=== PATIENT | female | born 1945 | race Caucasian/White ===

== ENCOUNTER 2017-11-06 20:12 | Emergency (ER) | payer MEDICARE, OTHER ==
[~2017-11-06 20:12] MED LIST: ASPI81TA94 PO; AZIT-1 PO; BENA40TA51 PO; BENA40TA52 PO; CALC-852 PO; CEP500 PO; CEPH500C24 PO; CPAP; CYCL10TA29 PO; FOLI-68 PO; GLY25 PO; GOLYTE PO; GUAI120L3 PO; HCTZ25 PO; HYDR-2966 PO; HYDR-4309 PO; METF-1 PO; METF-420 PO; NITR-105 PO; OMEP-125 PO; OXYC20TA86 PO; OXYGENHOME INH; PAR20 PO; PARO-46 PO; PER PO; PNEU0.5D3 IM; PRA20 PO; PRAV20TA66 PO; PRED20TA6 PO; TAMO10TA26 PO
--- NOTE | 2017-11-06 20:26 | ER Report ---
History and Physical Time Seen By MD: 20:26 Hx. of Stated Complaint: pt reports abdominal pain lower both sides off and on since saturday, headache, cough and dizziness, sore throat HPI/ROS CHIEF COMPLAINT: Cough, headache, abdominal pain HISTORY OF PRESENT ILLNESS: 72-year-old female patient presents to emergency room with complaint of cough, headache and abdominal pain. Patient states that she started not feeling well on Saturday. She states that there is nothing she could really identify just wasn't feeling well. She states then on Saturday started having body aches, cough, abdominal pain. States the abdominal pain is intermittent. She states that this morning she felt she was going to throw up, however she did not. She states that she's not had checked for any fevers. She states that she has had some generalized body aches. She states that she was not vaccinated for the flu. She has taken Tylenol ibuprofen but no other medications for this. REVIEW OF SYSTEMS: Respiratory: As noted above Cardiovascular: No chest pain, no palpitations. Gastrointestinal: As noted above. Musculoskeletal: No back pain. Allergies: Coded Allergies: oxycodone (Verified Allergy, Intermediate, itching , 06/13/16) Sulfa (Sulfonamide Antibiotics) (Verified Allergy, Mild, UNKNOWN, 06/13/16) Home Meds Active Scripts Oseltamivir Phosphate (TAMIFLU) 75 Mg Cap, 75 MG PO BID, #8 CAP Prov:SEGUNDO FREDERICK 11/06/17 Metformin Hcl (METFORMIN HCL) 1,000 Mg Tablet, 1 TAB PO BID, #180 TAB 3 Refills Prov:ANNIKA YOUSIF MD 08/27/17 Paroxetine Hcl (PAROXETINE HCL) 20 Mg Tablet, 1 TAB PO DAILY for prn, #90 TAB 1 Refill Prov:ANNIKA YOUSIF MD 07/24/17 Benazepril Hcl (BENAZEPRIL HCL) 40 Mg Tablet, 1 TAB PO QDAY, #90 TAB 3 Refills Prov:ANNIKA YOUSIF MD 07/17/17 Hydrochlorothiazide (HYDROCHLOROTHIAZIDE) 25 Mg Tablet, 1 TAB PO QDAY, #90 TAB 3 Refills Prov:ANNIKA YOUSIF MD 07/02/17 Omeprazole (OMEPRAZOLE) 20 Mg Capsule., 1 CAP PO QDAY, #90 CAP 3 Refills Prov:ANNIKA YOUSIF MD 03/27/17 Pravastatin Sodium (PRAVASTATIN SODIUM) 20 Mg Tablet, 1 TAB PO QDAY, #90 TAB 3 Refills Prov:ANNIKA YOUSIF MD 10/24/16 Glyburide (GLYBURIDE) 2.5 Mg Tab, 1 TAB PO BID, #180 TAB 3 Refills Prov:ANNIKA YOUSIF MD 10/09/16 Reported Medications Oxygen (OXYGEN) Inha, 3 L INH HS, L with C-PAP 03/28/16 Folic Acid (FOLIC ACID) 1 Mg Tablet, 1 TAB PO QDAY 03/22/15 Aspirin (ASPIRIN) 81 Mg Tab.chew, 1 TAB PO QDAY, TAB.CHEW 03/22/15 Cpap (CPAP HOME) Inha, HS with Oxygen 03/22/15 Tamoxifen Citrate (TAMOXIFEN CITRATE) 10 Mg Tablet, 1 TAB PO QDAY 07/20/14 Past Medical/Surgical History Patient has a past medical history of hypertension, hyperlipidemia, sleep apnea , hiatal hernia, reflux, urinary incontinence, frequent UTIs, arthritis, diabetes, 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 Patient has surgical history of tubal ligation, right shoulder surgery, cataract surgery, LASIK, lumpectomy, left lower lip incision. Reviewed Nurses Notes: Yes Hx Smoking: No Smoking Status: Never Smoker Exposure to Second Hand Smoke?: Yes Hx Substance Use Disorder: No Hx Alcohol Use: No Constitutional Vital Sign - Last 24 Hours 11/06/17 11/06/17 11/06/17 11/06/17 20:12 20:22 20:22 20:27 Temp 99.2 Pulse ??? 105 94 Resp 20 B/P (MAP) 117/62 (80) 117/62 Pulse Ox 92 92 O2 Delivery Room Air 11/06/17 11/06/17 11/06/17 11/06/17 20:30 20:42 20:57 21:00 Pulse 87 87 B/P (MAP) 114/67 (83) 107/51 (69) Pulse Ox 89 86 11/06/17 21:12 Pulse 87 Pulse Ox 85 Physical Exam General Appearance: The patient is alert, has no immediate need for airway protection and no current signs of toxicity. ENT: Tympanic membranes are pearly-lópez, auditory canals are patent, mucous membranes are moist. Respiratory: Chest is non tender, lungs are clear to auscultation. Cardiac: regular rate and rhythm Gastrointestinal: Abdomen is soft and non tender, no masses, bowel sounds normal. Musculoskeletal: Neck: Neck is supple and non tender. Extremities have full range of motion and are non tender. Skin: No rashes or lesions. DIFFERENTIAL DIAGNOSIS: After history and physical exam differential diagnosis was considered for influenza, pneumonia, bronchitis, viral syndrome. Medical Decision Making Data Points Laboratory Hematology Test 11/06/17 20:30 Influenza Virus Type A (PCR) Negative (NEGATIVE) Influenza Virus Type B (PCR) Positive (NEGATIVE) Chemistry Test 11/06/17 20:30 Influenza Virus Type A (PCR) Negative (NEGATIVE) Influenza Virus Type B (PCR) Positive (NEGATIVE) EKG/Imaging Imaging EXAMINATION: Chest 2 Views HISTORY: Cough. COMPARISON: 12/14/2015. FINDINGS: Slight scarring or atelectasis at the left lung base. No focal consolidation or pleural effusion. No pneumothorax. Normal heart size and pulmonary vascularity, with normal cardiomediastinal contours. No acute osseous findings in the chest. Scattered degenerative changes throughout the spine. Prior surgery at the right shoulder with soft tissue anchors along the greater tuberosity. IMPRESSION: 1. No evidence of acute cardiopulmonary disease. 2. Slight scarring or atelectasis at the left base. Report Dictated By: Jose Lantigua MD at 11/06/2017 10:31 PM Report E-Signed By: Jose Lantigua MD at 11/06/2017 10:34 PM ED Course/Re-evaluation ED Course Patient is admitted to exam room, history of physical or obtained. Differential diagnoses were considered. On examination patient had significant cough. I was concerned with influenza with the presentation of symptoms. Influenza screen and chest x-ray were done. Patient was positive for influenza B. Chest x-ray showed no acute findings. I discussed the findings with the patient as well as her . We will go ahead and treat her with Tamiflu as I believe that symptoms truly started yesterday. She is return to emergency room if condition worsens. I would like her to follow-up with Dr. Dempsey about a week. Patient verbalized understanding and agreement with plan. Decision to Disposition Date: Nov 06, 2017 Decision to Disposition Time: 22:06 Depart Departure Latest Vital Signs Vital Signs Date Time Temp Pulse Resp B/P (MAP) Pulse Ox O2 Delivery O2 Flow Rate FiO2 11/06/17 21:12 87 85 11/06/17 21:00 107/51 (69) 11/06/17 20:22 99.2 20 Room Air Impression: Primary Impression: Influenza B Condition: Improved Disposition: HOME OR SELF-CARE Referrals: ANNIKA YOUSIF MD (PCP) New Scripts Oseltamivir Phosphate (TAMIFLU) 75 Mg Cap 75 MG PO BID, #8 CAP Prov: SEGUNDO FREDERICK 11/06/17 Patient Instructions: Influenza (ED) Additional Instructions: Increase fluid intake. Get plenty of rest. Take Tylenol or Ibuprofen as needed for fevers or pain. Follow up with your primary care provider in the next week. Return to the ER if condition worsens. SEGUNDO FREDERICK Nov 06, 2017 20:26
[2017-11-06] MEDS ORDERED: OSELTAMIVIR PHOS 75 MG CAP PO ONE ×2 (21:25→22:40)
[2017-11-06] MEDS ORDERED: OSE75 PO (22:05)
[2017-11-06 22:30] VITALS: BP 101/52
--- NOTE | 2017-11-06 22:38 | RADIOLOGY IMAGING REPORT ---
FACILITY: [facility] PATIENT NAME: Stephanie Tay : 1945 MR: [id number] V: [id number] EXAM DATE: ORDERING PHYSICIAN: SEGUNDO FREDERICK TECHNOLOGIST: Location: [facility] - [place], [place] Patient: Stephanie Tay : 1945 Visit/Account:[id number] Date of Sevice: 11/06/2017 EXAMINATION: Chest 2 Views HISTORY: Cough. COMPARISON: 12/14/2015. FINDINGS: Slight scarring or atelectasis at the left lung base. No focal consolidation or pleural effusion. No pneumothorax. Normal heart size and pulmonary vascularity, with normal cardiomediastinal contours. No acute osseous findings in the chest. Scattered degenerative changes throughout the spine. Prior morelos rgery at the right shoulder with soft tissue anchors along the greater tuberosity. IMPRESSION: 1. No evidence of acute cardiopulmonary disease. 2. Slight scarring or atelectasis at the left base. Report Dictated By: Jose Lantigua MD at 11/06/2017 10:31 PM Report E-Signed By: Jose Lantigua MD at 11/06/2017 10:34 PM WSN:[id number]
== END 2017-11-06 22:51 | disposition home or self-care (01) ==
LOC: ER 20:33
DX: J11.1 Influenza due to unidentified influenza virus with other respiratory manifestations (principal)
CPT/HCPCS: 71046; 87502; 99283; A9270

== ENCOUNTER → 2017-12-16 | Outpatient (CLI) | payer MEDICARE, OTHER ==
[~2017-12-16] MED LIST changes: +OSE75 PO
[2017-12-16 10:26] LABS: LDL CHOLESTEROL 82 mg/dl
== END ==
LOC: LAB 09:49
PROVIDERS: ATTEND Internal Medicine
DX: I10 Essential (primary) hypertension (principal); E78.2 Mixed hyperlipidemia; E11.65 Type 2 diabetes mellitus with hyperglycemia
CPT/HCPCS: 36415; 82040; 82247; 82310; 82374; 82435; 82465; 82565; 82947; 83036; 83718; 84075; 84132; 84155; 84295; 84450; 84460; 84478; 84520

== ENCOUNTER → 2018-04-23 | Outpatient (CLI) | payer MEDICARE, OTHER ==
[~2018-04-23] MED LIST changes: -BENA40TA52 PO; +BENA40TA53 PO; +FLUT16SP19; -METF-420 PO; +METF-421 PO
[2018-04-23 11:44] LABS: LDL CHOLESTEROL 60 mg/dl
== END ==
LOC: LAB 10:38
PROVIDERS: ATTEND Internal Medicine
DX: E78.2 Mixed hyperlipidemia (principal); I10 Essential (primary) hypertension; E11.65 Type 2 diabetes mellitus with hyperglycemia
CPT/HCPCS: 36415; 82040; 82247; 82310; 82374; 82435; 82465; 82565; 82947; 83036; 83718; 84075; 84132; 84155; 84295; 84450; 84460; 84478; 84520

== ENCOUNTER → 2018-08-27 | Outpatient (CLI) | payer MEDICARE, OTHER ==
[~2018-08-27] MED LIST changes: -HYDR-4309 PO; +HYDR-653 PO; -METF-421 PO; +METF-452 PO
[2018-08-27 10:23] LABS: LDL CHOLESTEROL 68 mg/dl
== END ==
LOC: LAB 09:23
PROVIDERS: ATTEND Internal Medicine
DX: E78.2 Mixed hyperlipidemia (principal); I10 Essential (primary) hypertension; E11.65 Type 2 diabetes mellitus with hyperglycemia
CPT/HCPCS: 36415; 82040; 82247; 82310; 82374; 82435; 82465; 82565; 82947; 83036; 83718; 84075; 84132; 84155; 84295; 84450; 84460; 84478; 84520

== ENCOUNTER 2018-10-26 16:41 | Emergency (ER) | payer MEDICARE, OTHER ==
--- NOTE | 2018-10-26 16:38 | ER Report ---
History and Physical Time Seen By MD: 16:37 (MICHEAL UNDERWOOD DO) HPI/ROS CHIEF COMPLAINT: Fall HISTORY OF PRESENT ILLNESS: Patient is a 73-year-old female here with complaints of fall, transient altered mental status post fall. Patient reportedly fell down approximately 3 steps landing on her face. EMS reports that the patient is confused, minimally responsive at time of initial evaluation which improved throughout transport. Patient denies being on anticoagulants. Patient is hemodynamically stable at time of evaluation. REVIEW OF SYSTEMS: Constitutional: No fever, no chills. Eyes: No discharge. Significant periorbital edema and ecchymosis around the right eye with a 3 cm laceration ENT: No sore throat. Significant ecchymosis in the facial distribution with no loose teeth Cardiovascular: No chest pain, no palpitations. Respiratory: No cough, no shortness of breath. Gastrointestinal: No abdominal pain, no vomiting. Genitourinary: No hematuria. Musculoskeletal: No back pain. Skin: No rashes. Neurological: + Facial headache, oriented to person and place but not time (MICHEAL UNDERWOOD DO) Allergies: Coded Allergies: oxycodone (Verified Allergy, Intermediate, itching , 06/13/16) Sulfa (Sulfonamide Antibiotics) (Verified Allergy, Mild, UNKNOWN, 06/13/16) Home Meds Active Scripts Hydrochlorothiazide (HYDROCHLOROTHIAZIDE) 25 Mg Tablet, 1 TAB PO QDAY, #90 TAB 0 Refills Prov:ANNIKA YOUSIF MD 10/16/18 Paroxetine Hcl (PAROXETINE HCL) 20 Mg Tablet, 1 TAB PO DAILY for prn, #90 TAB 1 Refill Prov:ANNIKA YOUSIF MD 08/14/18 Benazepril Hcl (BENAZEPRIL HCL) 40 Mg Tablet, 1 TAB PO QDAY, #90 TAB 3 Refills Prov:ANNIKA YOUSIF MD 08/14/18 Metformin Hcl (METFORMIN HCL) 1,000 Mg Tablet, 1 TAB PO BID, #180 TAB 0 Refills Prov:ANNIKA YOUSIF MD 08/06/18 Pravastatin Sodium (PRAVASTATIN SODIUM) 20 Mg Tablet, 1 TAB PO QDAY, #90 TAB 3 Refills Prov:ANNIKA YOUSIF MD 06/05/18 Omeprazole (OMEPRAZOLE) 20 Mg Capsule.dr, 1 CAP PO QDAY, #90 CAP 3 Refills Prov:ANNIKA YOUSIF MD 04/02/18 Fluticasone Prop 50 Mcg Ns (FLONASE 50 MCG NS) 16 Gm Lorane.susp, 2 SPRAYS NA QDAY for 90 Days, #3 BOT 3 Refills Prov:CIERRA VALLE JR, MD 03/20/18 Glyburide (GLYBURIDE) 2.5 Mg Tab, 1 TAB PO BID, #180 TAB 3 Refills Prov:ANNIKA YOUSIF MD 02/26/18 Reported Medications Oxygen (OXYGEN) Inha, 3 L INH HS, L with C-PAP 03/28/16 Folic Acid (FOLIC ACID) 1 Mg Tablet, 1 TAB PO QDAY 03/22/15 Aspirin (ASPIRIN) 81 Mg Tab.chew, 1 TAB PO QDAY, TAB.CHEW 03/22/15 Cpap (CPAP HOME) Inha, HS with Oxygen 03/22/15 Tamoxifen Citrate (TAMOXIFEN CITRATE) 10 Mg Tablet, 1 TAB PO QDAY 07/20/14 Past Medical/Surgical History Past Medical History Cardiovascular: Reports hx of: hyperlipidemia (mixed) hypertension Respiratory: Reports hx of: sleep apnea Psychiatric: Reports hx of: depression Endocrine: Reports hx of: diabetes type 2 hypothyroidism Hematology/oncology: Reprots hx of: breast cancer Infectious disease: Reports hx of: other infectious disease (shingles, L T1-2, 11/03) Past Surgical History HEENT: Reports hx of: cataract extraction (bilat ) other eye surgery (retinal detachment 03/02) Gynecologic: Reports hx of: tubal ligation (1983) Breast: Reports hx of: breast biopsy (05/29 Left) lumpectomy (07/29) Integumentary: Reports hx of: skin cancer removal (SCC back) (KEV COLBERT DO) Hx Smoking: No Smoking Status: Never Smoker Exposure to Second Hand Smoke?: Yes Hx Substance Use Disorder: No Hx Alcohol Use: No (MICHEAL UNDERWOOD DO) Constitutional Vital Sign - Last 24 Hours 10/26/18 10/26/18 10/26/18 10/26/18 16:43 16:44 17:00 17:01 Temp 98.5 Pulse 94 95 Resp 16 B/P (MAP) 140/74 140/74 (96) 127/67 (87) Pulse Ox 91 90 O2 Delivery Room Air 210/26/18 10/26/18 10/26/18 17:21 17:30 17:41 17:46 Pulse 94 98 99 B/P (MAP) 127/63 (84) Pulse Ox 91 93 93 10/26/18 10/26/18 10/26/18 10/26/18 18:00 18:06 18:20 18:26 Pulse 101 98 B/P (MAP) 118/53 (74) Pulse Ox 91 96 O2 Flow Rate 2.0 10/26/18 10/26/18 10/26/18 10/26/18 18:30 18:46 19:00 19:06 Pulse 98 98 B/P (MAP) 127/77 (94) 133/95 (108) Pulse Ox 96 96 10/26/18 10/26/18 10/26/18 10/26/18 19:11 19:26 19:30 19:41 Pulse 106 99 98 Resp 18 14 B/P (MAP) 130/52 (78) Pulse Ox 96 95 94 10/26/18 10/26/18 19:46 19:51 Pulse 94 104 Resp 24 27 Pulse Ox 95 97 Intake and Output 10/26/18 10/26/18 10/27/18 15:00 23:00 07:00 Output Total 400 ml Balance -400 ml (KEV COLBERT DO) Physical Exam General Appearance: The patient is alert, has no immediate need for airway protection and no signs of toxicity. No acute distress Eyes: Pupils equal and round no pallor or injection. Significant edema and periorbital ecchymosis around the right eye ENT, Mouth: Mucous membranes are moist. Dried blood in the mouth Respiratory: There are no retractions, lungs are clear to auscultation. Cardiovascular: Regular rate and rhythm. Gastrointestinal: Abdomen is soft and non tender, no masses, bowel sounds normal. Neurological: No focal neurological deficits, moving all extremities sponta neously, oriented the self and place Skin: Scattered abrasions and lacerations on the face Musculoskeletal: Neck is supple non tender. Extremities are nontender, nonswollen and have full range of motion. DIFFERENTIAL DIAGNOSIS: After history and physical exam differential diagnosis was considered for fracture, contusion, intracranial bleed, dislocation (MICHEAL UNDERWOOD DO) Medical Decision Making Data Points Result Diagram: 10/26/18 1630 10/26/18 1700 Laboratory Hematology Test 10/26/18 16:30 10/26/18 17:00 10/26/18 19:15 Red Blood Count 4.90 M/uL (4.17-5.56) Mean Corpuscular Volume 89.5 fL (80.0-96.0) Mean Corpuscular Hemoglobin 29.3 pg (26.0-33.0) Mean Corpuscular Hemoglobin Concent 32.7 g/dL (32.0-36.0) Red Cell Distribution Width 13.5 % (11.5-14.5) Mean Platelet Volume 10.3 fL (7.2-11.1) Neutrophils (%) (Auto) 45.1 % (39.4-72.5) Lymphocytes (%) (Auto) 43.5 % (17.6-49.6) Monocytes (%) (Auto) 8.6 % (4.1-12.4) Eosinophils (%) (Auto) 1.9 % (0.4-6.7) Basophils (%) (Auto) 0.9 % (0.3-1.4) Nucleated RBC Relative Count (auto) 0.0 /100WBC Neutrophils # (Auto) 4.5 K/uL (2.0-7.4) Lymphocytes # (Auto) 4.3 K/uL (1.3-3.6) Monocytes # (Auto) 0.9 K/uL (0.3-1.0) Eosinophils # (Auto) 0.2 K/uL (0.0-0.5) Basophils # (Auto) 0.1 K/uL (0.0-0.1) Nucleated RBC Absolute Count (auto) 0.00 K/uL Prothrombin Time 12.9 seconds (12.0-14.4) Prothromb Time International Ratio 0.97 Activated Partial Thromboplast Time 22 seconds (23-35) Sodium Level 141 mmol/L (137-145) Potassium Level 3.3 mmol/L (3.5-5.0) Chloride Level 111 mmol/L (98-107) Carbon Dioxide Level 25 mmol/L (22-31) Blood Urea Nitrogen 12 mg/dl (7-18) Creatinine 0.70 mg/dl (0.52-1.04) Glomerular Filtration Rate Calc > 60.0 Random Glucose 204 mg/dl (75-110) Lactate 2.1 mmol/L (0.7-2.1) Calcium Level 9.5 mg/dl (8.4-10.2) Total Bilirubin 0.2 mg/dl (0.2-1.3) Aspartate Amino Transf (AST/SGOT) 59 U/L (0-35) Alanine Aminotransferase (ALT/SGPT) 48 U/L (0-56) Alkaline Phosphatase 77 U/L (0-126) Total Protein 6.6 g/dl (6.3-8.2) Albumin 3.8 g/dl (3.5-5.0) Lipase 159 U/L (23-300) Serum Alcohol < 10 mg/dl Urine Color Yellow Urine Clarity Clear Urine pH 5.0 pH (4.8-9.5) Urine Specific [place] 1.019 Urine Protein 30 mg/dL (NEGATIVE) Urine Glucose (UA) 50 mg/dL (NEGATIVE) Urine Ketones Trace mg/dL (NEGATIVE) Urine Blood Negative (NEGATIVE) Urine Nitrite Negative (NEGATIVE) Urine Bilirubin Negative (NEGATIVE) Urine Urobilinogen Negative mg/dL (0.2-1.9) Urine Leukocyte Esterase Negative (NEGATIVE) Urine RBC 1 /HPF (0-2/HPF) Urine WBC 7 /HPF (0-5/HPF) Urine Squamous Epithelial Cells Many /LPF (NONE-FEW) Urine Bacteria Few /HPF (NONE-FEW) Urine Mucus Few /HPF (NONE-FEW) Urine Opiates Screen Negative Urine Barbiturates Screen Negative Ur Tricyclic Antidepressants Screen Negative Urine Phencyclidine Screen Negative Urine Amphetamines Screen Negative Urine Benzodiazepines Screen Negative Urine Cocaine Screen Negative Urine Cannabinoids Screen Negative Chemistry Test 10/26/18 16:30 10/26/18 17:00 10/26/18 19:15 White Blood Count 9.9 k/uL (4.5-11.0) Red Blood Count 4.90 M/uL (4.17-5.56) Hemoglobin 14.4 g/dL (12.0-16.0) Hematocrit 43.9 % (34.0-47.0) Mean Corpuscular Volume 89.5 fL (80.0-96.0) Mean Corpuscular Hemoglobin 29.3 pg (26.0-33.0) Mean Corpuscular Hemoglobin Concent 32.7 g/dL (32.0-36.0) Red Cell Distribution Width 13.5 % (11.5-14.5) Platelet Count 337 K/uL (150-450) Mean Platelet Volume 10.3 fL (7.2-11.1) Neutrophils (%) (Auto) 45.1 % (39.4-72.5) Lymphocytes (%) (Auto) 43.5 % (17.6-49.6) Monocytes (%) (Auto) 8.6 % (4.1-12.4) Eosinophils (%) (Auto) 1.9 % (0.4-6.7) Basophils (%) (Auto) 0.9 % (0.3-1.4) Nucleated RBC Relative Count (auto) 0.0 /100WBC Neutrophils # (Auto) 4.5 K/uL (2.0-7.4) Lymphocytes # (Auto) 4.3 K/uL (1.3-3.6) Monocytes # (Auto) 0.9 K/uL (0.3-1.0) Eosinophils # (Auto) 0.2 K/uL (0.0-0.5) Basophils # (Auto) 0.1 K/uL (0.0-0.1) Nucleated RBC Absolute Count (auto) 0.00 K/uL Prothrombin Time 12.9 seconds (12.0-14.4) Prothromb Time International Ratio 0.97 Activated Partial Thromboplast Time 22 seconds (23-35) Glomerular Filtration Rate Calc > 60.0 Lactate 2.1 mmol/L (0.7-2.1) Calcium Level 9.5 mg/dl (8.4-10.2) Total Bilirubin 0.2 mg/dl (0.2-1.3) Aspartate Amino Transf (AST/SGOT) 59 U/L (0-35) Alanine Aminotransferase (ALT/SGPT) 48 U/L (0-56) Alkaline Phosphatase 77 U/L (0-126) Total Protein 6.6 g/dl (6.3-8.2) Albumin 3.8 g/dl (3.5-5.0) Lipase 159 U/L (23-300) Serum Alcohol < 10 mg/dl Urine Color Yellow Urine Clarity Clear Urine pH 5.0 pH (4.8-9.5) Urine Specific [place] 1.019 Urine Protein 30 mg/dL (NEGATIVE) Urine Glucose (UA) 50 mg/dL (NEGATIVE) Urine Ketones Trace mg/dL (NEGATIVE) Urine Blood Negative (NEGATIVE) Urine Nitrite Negative (NEGATIVE) Urine Bilirubin Negative (NEGATIVE) Urine Urobilinogen Negative mg/dL (0.2-1.9) Urine Leukocyte Esterase Negative (NEGATIVE) Urine RBC 1 /HPF (0-2/HPF) Urine WBC 7 /HPF (0-5/HPF) Urine Squamous Epithelial Cells Many /LPF (NONE-FEW) Urine Bacteria Few /HPF (NONE-FEW) Urine Mucus Few /HPF (NONE-FEW) Urine Opiates Screen Negative Urine Barbiturates Screen Negative Ur Tricyclic Antidepressants Screen Negative Urine Phencyclidine Screen Negative Urine Amphetamines Screen Negative Urine Benzodiazepines Screen Negative Urine Cocaine Screen Negative Urine Cannabinoids Screen Negative Coagulation Test 10/26/18 16:30 Prothrombin Time 12.9 seconds Prothromb Time International Ratio 0.97 Activated Partial Thromboplast Time 22 seconds Toxicology Test 10/26/18 17:00 10/26/18 19:15 Serum Alcohol < 10 mg/dl Urine Opiates Screen Negative Urine Barbiturates Screen Negative Ur Tricyclic Antidepressants Screen Negative Urine Phencyclidine Screen Negative Urine Amphetamines Screen Negative Urine Benzodiazepines Screen Negative Urine Cocaine Screen Negative Urine Cannabinoids Screen Negative Urinalysis Test 10/26/18 19:15 Urine Color Yellow Urine Clarity Clear Urine pH 5.0 pH (4.8-9.5) Urine Specific [place] 1.019 Urine Protein 30 mg/dL (NEGATIVE) Urine Glucose (UA) 50 mg/dL (NEGATIVE) Urine Ketones Trace mg/dL (NEGATIVE) Urine Blood Negative (NEGATIVE) Urine Nitrite Negative (NEGATIVE) Urine Bilirubin Negative (NEGATIVE) Urine Urobilinogen Negative mg/dL (0.2-1.9) Urine Leukocyte Esterase Negative (NEGATIVE) Urine RBC 1 /HPF (0-2/HPF) Urine WBC 7 /HPF (0-5/HPF) Urine Squamous Epithelial Cells Many /LPF (NONE-FEW) Urine Bacteria Few /HPF (NONE-FEW) Urine Mucus Few /HPF (NONE-FEW) (KEV COLBERT DO) EKG/Imaging Imaging Pending trauma scan results (MICHEAL UNDERWOOD DO) Imaging Results: CT scan of the head and cervical spine without contrast was obtained. The results of the study are HISTORY: Fall. PROCEDURE: Noncontrast CT from the vertex through the skull base and multiplanar noncontrast cervical spine. One of the following dose optimization techniques was utilized in the performance of this exam: Automated exposure control; adjustment of the mA and/or kV according to the patient's size; or use of an iterative reconstruction technique. Specific details can be referenced in the facility's radiology CT exam operational policy. FINDINGS: CT head without contrast: Brain volume: Age-appropriate. Hemorrhage/extra-axial fluid: Multifocal subarachnoid hemorrhage along both frontoparietal lobes and likely within the sylvian fissure. Questionable trace inferior frontal subarachnoid hemorrhage bilaterally. No extra-axial, intraventricular, intraparenchymal hemorrhage. Mass effect/midline shift/edema: None. Ischemia: Pascal-white differentiation is preserved. Ventricles and basal cisterns: Within normal limits. Posterior fossa: Negative. Vessels: Negative. Calvarium, skull base, and scalp: Calvarium is intact. No definite skull base fractures identified. Scalp soft tissues are unremarkable. Visualized sinuses and orbits: Right periorbital soft tissue edema. Right zygomaticomaxillary complex fracture with a nondisplaced fracture of the zygomatic arch and displaced and comminuted fracture involving the right lateral orbit. There is a complex fracture of the right maxillary sinus with displacemen t and comminution of the anterior and lateral irving as well as a mildly displaced fracture of the roof/orbital floor. Possible nondisplaced fracture of the maxillary sinus medial wall is present as well. Additionally, there is a probable nondisplaced fracture of the right orbit medial wall/lamina papyracea. The maxillary sinus is filled with hemorrhage there is a small amount of likely hemorrhage in the sphenoid sinuses and ethmoid air cells. The globes are symmetric although there is mild right-sided proptosis with questionable traction on the optic nerve. There is trace hemorrhage in the extraconal fat but no measurable post septal fluid collection. Mastoid air cells are well aerated. Temporal mandibular joint alignment is within normal limits. CT cervical spine without contrast: Alignment: Within normal limits. Cranio-cervical junction: Alignment is within normal limits. Moderate de generative change at the atlantodens interval. Best seen on series 5 image 24 there is an age indeterminate nondisplaced fracture through the lateral margin of the C1 right lateral mass. Vertebral bodies: No other potential fractures identified. Posterior elements: Facet alignment is within normal limits with right-sided multilevel moderately advanced facet arthropathy. No acute fracture. Disc spaces: Moderately advanced degenerative disc disease at C3-C4, C4-C5, and C5-C6. Posterior disc and osteophyte complexes at these levels results in mild canal stenosis. Additionally, multilevel uncovertebral joint hypertrophy and facet arthropathy results in moderate to advanced foraminal narrowing throughout the cervical spine. Hardware: None. Soft tissues: Carotid atherosclerosis. No acute findings. Visualized upper chest: No acute findings. IMPRESSION: 1. Multifocal subarachnoid hemorrhage. 2. Right zygomaticomaxillary complex fracture with a complex fracture of the right maxillary sinus. 3. Right orbital floor mildly displaced fracture and probable nondisplaced fracture of the medial wall with trace hemorrhage in the extraconal fat. There is mild proptosis of the right orbit and questionable traction on the right optic nerve. ENT/ophthalmology consultation is recommended. 4. Age-indeterminate nondisplaced fracture through the lateral margin of the C1 right lateral mass. No other cervical spine fracture is identified. 5. Cervical spine degenerative change as described above.Results were discussed with Dr. Kev Colbert at 10/26/2018 6:12 PM. .The study was read by the radiologist. I viewed the images myself on the PACS system. Examination: CT chest, abdomen, and pelvis without contrast Comparison: None. History: fall Procedure: Multiplanar noncontrast imaging of the chest, abdomen, and pelvis. One of the following dose optimization techniques was utilized in the performance of this exam: Automated exposure control; adjustment of the mA a nd/or kV according to the patient's size; or use of an iterative reconstruction technique. Specific details can be referenced in the facility's radiology CT exam operational policy. Findings: Evaluation of the solid and viscus parenchymal organs and vascular structures is limited without the benefit of IV contrast. CT chest: Mediastinum: Cardiac chamber size is normal. No pericardial effusion. Mild coronary calcifications. No thoracic aortic aneurysm. No mediastinal hemorrhage. Lymph nodes: None. Lungs and pleura: Right lower lobe 5 mm nodule. No consolidation. No pneumothorax, edema, or effusion. Airways: Negative. Diaphragm: Intact. CT abdomen and pelvis: Liver: Negative Gallbladder and biliary system: Negative Spleen: Negative Pancreas: Negative Adrenal glands: Negative Kidneys and urinary bladder: Negative Vessels: Aortoiliac mild atherosclerosis. No abdominal aortic aneurysm. No retroperitoneal hemorrhage. Bowel and mesentery: Stomach, small bowel, and appendix are unremarkable. Small amount of stool in the colon. No bowel or mesenteric inflammation. Pelvic organs: Negative. Free air/free fluid: None Lymph nodes: Negative Abdominal wall and subcutaneous tissues: Small fat-containing umbilical hernia. No acute findings. Osseous structures: Thoracolumbar spine: No vertebral body height loss or acute malalignment. Moderately advanced degenerative disc disease at L3-L4 and to lesser extent at L1-L2, L2-L3, L4-L5, and L5-S1. A disc bulge at L3-L4 results in severe canal and lateral recess narrowing. No fracture. Pelvic ring: Pelvic ring is intact. Pubic symphysis osteoarthritis. Proximal femur are intact. Ribs: Right third rib nondisplaced segmental fracture. Right fourth rib nondisplaced lateral fracture. Right fifth rib nondisplaced segmental fracture. Right seventh rib nondisplaced lateral fracture. Visualized sternum, scapula, and clavicles: No fracture. Glenohumeral osteoarthritis. IMPRESSION: 1. Right third, fourth, fifth, and seventh rib fractures. 2. No other noncontrast CT findings of trauma or acute disease in the chest, abdomen, or pelvis. 3. Right lower lobe 5 mm nodule. Follow-up as detailed below. 4. Additional chronic/incidental findings as described above. Results: CT scan of the [head] was obtained. The results of the study are [normal]. The study was read by the radiologist. I viewed the images myself on the PACS system. (KEV COLBERT DO) ED Course/Re-evaluation ED Course Patient is a 73-year-old female here status post fall down 3 steps landing on her face on the concrete. Patient did have loss of consciousness and did have significant confusion initially. Patient complained of facial pain but denied other injuries at time of evaluation. Patient is hemodynamically stable at time of evaluation, afebrile. A 3 cm laceration on the patient's external right upper eyelid was closed using 3 sutures 5-0 Ethilon and Dermabond with good approximation. CT imaging of the head, C-spine, chest abdomen and pelvis was completed due to mechanism of injury. Patient was signed out to Dr. Colbert at shift change pending CT imaging results. Procedure 3 cm laceration of the right upper external eyelid was identified. Laceration was closed using 3 5-0 Ethilon sutures. A small amount of Dermabond was used to close are approximate the laceration margins. Patient tolerated the procedure well. Decision to Disposition Date: Oct 26, 2018 Decision to Disposition Time: 18:00 (MICHEAL UNDERWOOD DO) ED Course Care was assumed at shift change from Dr. Underwood with diagnostic CT spending for trauma evaluation. Patient fell off landing and face planted approximately 3 steps down, sustaining significant injury to her right face and orbit. CTs of the head, neck and chest, abdomen and pelvis were performed. The CT scan of the head and cervical spine show significant trauma to the right orbit and a nondisplaced C1 fracture. Patient also has a multifocal subarachnoid hem orrhage. CT of the chest, abdomen and pelvis shows for fractured ribs on the right without pneumothorax. Patient was medicated with fentanyl 50 g IV and Zofran 4 mg. She'll be transferred by ground ambulance to [facility] for further evaluation and treatment. 10/26/2018 6:36:15 pm case was discussed with Dr. Bhupendra Ernandez trauma surgeon at [facility] who accepts the patient for transfer to his facility. Decision to Disposition Date: Oct 26, 2018 Decision to Disposition Time: 18:27 Critical Care Time I spent a total of 90 minutes of critical care time in obtaining history, performing a physical exam, bedside monitoring of interventions, collecting and interpreting tests and discussion with consultants but not including time spent performing procedures. (KEV COLBERT DO) Depart Departure Latest Vital Signs Vital Signs Date Time Temp Pulse Resp B/P (MAP) Pulse Ox O2 Delivery O2 Flow Rate FiO2 10/26/18 19:51 104 27 97 10/26/18 19:30 130/52 (78) 10/26/18 18:20 2.0 10/26/18 16:43 98.5 Room Air (KEV COLBERT DO) Impression: Primary Impression: Fall Additional Impressions: Subarachnoid hemorrhage Zygomatic fracture, right side, initial encounter for closed fracture C1 cervical fracture Multiple fractures of ribs Eyebrow laceration Condition: Improved Disposition: XFER TO ACUTE CARE HOSPITAL Referrals: ANNIKA YOUSIF MD (PCP) Problem Qualifiers Primary Impression: Fall Encounter type: initial encounter Qualified Codes: W19.XXXA - Unspecified fall, initial encounter Additional Impressions: C1 cervical fracture Encounter type: initial encounter Fracture type: closed Fracture morphology: unspecified fracture morphology Fracture alignment: nondisplaced Qualified Codes: S12.001A - Unspecified nondisplaced fracture of first cervical vertebra, initial encounter for closed fracture Multiple fractures of ribs Encounter type: initial encounter Fracture type: closed Laterality: right Qualified Codes: S22.41XA - Multiple fractures of ribs, right side, initial encounter for closed fracture Eyebrow laceration Encounter type: initial encounter Laterality: right Qualified Codes: S01.111A - Laceration without foreign body of right eyelid and periocular area, initial encounter MICHEAL UNDERWOOD DO Oct 26, 2018 16:38 KEV COLBERT DO Oct 26, 2018 18:39
[2018-10-26] MEDS ORDERED: DIPHTH/TETANUS/ACEL. PERTUSSIS IM ONE (16:50)
[2018-10-26 17:10] LABS: PLATELET COUNT, AUTOMATED 337 K/uL (150-450)
[2018-10-26 17:22] LABS: INR 0.97
--- NOTE | 2018-10-26 17:40 | EKG ---
FACILITY: [facility] - [place] PATIENT NAME: SADIE CHAUHAN : [id number] MR: [id number] V: [id number] EXAM DATE: ORDERING PHYSICIAN: MICHEAL TERRELL TECHNOLOGIST: HELEN Test Reason : FALL Blood Pressure : / mmHG Vent. Rate : 098 BPM Atrial Rate : 098 BPM P-R Int : 162 ms QRS Dur : 066 ms QT Int : 348 ms P-R-T Axes : 073 -42 037 degrees QTc Int : 444 ms Sinus rhythm with premature supraventricular complexes Left axis deviation Abnormal ECG When compared with ECG of 21-JUL-2013 16:42, premature supraventricular complexes are now present Confirmed by LATOYA STALLWORTH ([id number]) on 10/27/2018 1:24:31 AM Referred By: XANDER Confirmed By:LATOYA STALLWORTH
[2018-10-26] MEDS ORDERED: fentaNYL CITR 100 MCG/2 ML AMP IVP ONE (18:05)
[2018-10-26] MEDS ORDERED: ONDANSETRON 4 MG/2 ML VIAL IVP ONE (18:05)
--- NOTE | 2018-10-26 18:20 | RADIOLOGY IMAGING REPORT ---
FACILITY: [facility] [place] PATIENT NAME: Stephanie Tay : 1945 MR: [id number] V: [id number] EXAM DATE: ORDERING PHYSICIAN: MICHEAL TERRELL TECHNOLOGIST: Location: [facility] Patient: Stephanie Tay : 1945 Visit/Account:[id number] Date of Sevice: 10/26/2018 EXAMINATION: CT HEAD AND CERVICAL SPINE WITHOUT CONTRAST COMPARISON: None available HISTORY: Fall. PROCEDURE: Noncontrast CT from the vertex through the skull base and multiplanar noncontrast cervical spine. One of the following dose optimization techniques was utilized in the performance of this exa m: Automated exposure control; adjustment of the mA and/or kV according to the patient's size; or use of an iterative reconstruction technique. Specific details can be referenced in the facility's rad ioly CT exam operational policy. FINDINGS: CT head without contrast: Brain volume: Age-appropriate. Hemorrhage/extra-axial fluid: Multifocal subarachnoid hemorrhage along both frontoparietal lobes and likely within the sylvian fissure. Questionable trace inferior frontal subarachnoid hemorrhage bilate rally. No extra-axial, intraventricular, intraparenchymal hemorrhage. Mass effect/midline shift/edema: None. Ischemia: Pascal-white differentiation is preserved. Ventricles and basal cisterns: Within normal limits. Posterior fossa: Negative. Vessels: Negative. Calvarium, skull base, and scalp: Calvarium is intact. No definite skull base fractures identified. S calp soft tissues are unremarkable. Visualized sinuses and orbits: Right periorbital soft tissue edema. Right zygomaticomaxillary complex fracture with a nondisplaced fracture of the zygomatic arch and displaced and comminuted fracture in volving the right lateral orbit. There is a complex fracture of the right maxillary sinus with displa cement and comminution of the anterior and lateral irving as well as a mildly displaced fracture of th e roof/orbital floor. Possible nondisplaced fracture of the maxillary sinus medial wall is present as well. Additionally, there is a probable nondisplaced fracture of the right orbit medial wall/lamina papyracea. The maxillary sinus is filled with hemorrhage there is a small amount of likely hemorrhage in the sphenoid sinuses and ethmoid air cells. The globes are symmetric although there is mild right -sided proptosis with questionable traction on the optic nerve. There is trace hemorrhage in the extr aconal fat but no measurable post septal fluid collection. Mastoid air cells are well aerated. Tempor al mandibular joint alignment is within normal limits. CT cervical spine without contrast: Alignment: Within normal limits. Cranio-cervical junction: Alignment is within normal limits. Moderate degenerative change at the atla ntodens interval. Best seen on series 5 image 24 there is an age indeterminate nondisplaced fracture through the lateral margin of the C1 right lateral mass. Vertebral bodies: No other potential fractures identified. Posterior elements: Facet alignment is within normal limits with right-sided multilevel moderately ad vanced facet arthropathy. No acute fracture. Disc spaces: Moderately advanced degenerative disc disease at C3-C4, C4-C5, and C5-C6. Posterior disc and osteophyte complexes at these levels results in mild canal stenosis. Additionally, multilevel un covertebral joint hypertrophy and facet arthropathy results in moderate to advanced foraminal narrowi ng throughout the cervical spine. Hardware: None. Soft tissues: Carotid atherosclerosis. No acute findings. Visualized upper chest: No acute findings. IMPRESSION: 1. Multifocal subarachnoid hemorrhage. 2. Right zygomaticomaxillary complex fracture with a complex fracture of the right maxillary sinus. 3. Right orbital floor mildly displaced fracture and probable nondisplaced fracture of the medial wal l with trace hemorrhage in the extraconal fat. There is mild proptosis of the right orbit and questio nable traction on the right optic nerve. ENT/ophthalmology consultation is recommended. 4. Age-indeterminate nondisplaced fracture through the lateral margin of the C1 right lateral mass. N o other cervical spine fracture is identified. 5. Cervical spine degenerative change as described above.Results were discussed with Dr. Kev Colbert at 10/26/2018 6:12 PM. Report Dictated By: Obinna Mccain MD at 10/26/2018 5:58 PM Report E-Signed By: Obinna Mccain MD at 10/26/2018 6:16 PM WSN:[id number]
--- NOTE | 2018-10-26 18:20 | RADIOLOGY IMAGING REPORT ---
FACILITY: [facility] PATIENT NAME: Stephanie Tay : 1945 MR: [id number] V: [id number] EXAM DATE: ORDERING PHYSICIAN: MICHEAL TERRELL TECHNOLOGIST: [facility] Patient: Stephanie Tay : 1945 Visit/Account:[id number] Date of Sevice: 10/26/2018 EXAMINATION: CT HEAD AND CERVICAL SPINE WITHOUT CONTRAST COMPARISON: None available HISTORY: Fall. PROCEDURE: Noncontrast CT from the vertex through the skull base and multiplanar noncontrast cervical spine. One of the following dose optimization techniques was utilized in the performance of this exa m: Automated exposure control; adjustment of the mA and/or kV according to the patient's size; or use of an iterative reconstruction technique. Specific details can be referenced in the facility's rad ioly CT exam operational policy. FINDINGS: CT head without contrast: Brain volume: Age-appropriate. Hemorrhage/extra-axial fluid: Multifocal subarachnoid hemorrhage along both frontoparietal lobes and likely within the sylvian fissure. Questionable trace inferior frontal subarachnoid hemorrhage bilate rally. No extra-axial, intraventricular, intraparenchymal hemorrhage. Mass effect/midline shift/edema: None. Ischemia: Pascal-white differentiation is preserved. Ventricles and basal cisterns: Within normal limits. Posterior fossa: Negative. Vessels: Negative. Calvarium, skull base, and scalp: Calvarium is intact. No definite skull base fractures identified. S calp soft tissues are unremarkable. Visualized sinuses and orbits: Right periorbital soft tissue edema. Right zygomaticomaxillary complex fracture with a nondisplaced fracture of the zygomatic arch and displaced and comminuted fracture in volving the right lateral orbit. There is a complex fracture of the right maxillary sinus with displa cement and comminution of the anterior and lateral irving as well as a mildly displaced fracture of th e roof/orbital floor. Possible nondisplaced fracture of the maxillary sinus medial wall is present as well. Additionally, there is a probable nondisplaced fracture of the right orbit medial wall/lamina papyracea. The maxillary sinus is filled with hemorrhage there is a small amount of likely hemorrhage in the sphenoid sinuses and ethmoid air cells. The globes are symmetric although there is mild right -sided proptosis with questionable traction on the optic nerve. There is trace hemorrhage in the extr aconal fat but no measurable post septal fluid collection. Mastoid air cells are well aerated. Tempor al mandibular joint alignment is within normal limits. CT cervical spine without contrast: Alignment: Within normal limits. Cranio-cervical junction: Alignment is within normal limits. Moderate degenerative change at the atla ntodens interval. Best seen on series 5 image 24 there is an age indeterminate nondisplaced fracture through the lateral margin of the C1 right lateral mass. Vertebral bodies: No other potential fractures identified. Posterior elements: Facet alignment is within normal limits with right-sided multilevel moderately ad vanced facet arthropathy. No acute fracture. Disc spaces: Moderately advanced degenerative disc disease at C3-C4, C4-C5, and C5-C6. Posterior disc and osteophyte complexes at these levels results in mild canal stenosis. Additionally, multilevel un covertebral joint hypertrophy and facet arthropathy results in moderate to advanced foraminal narrowi ng throughout the cervical spine. Hardware: None. Soft tissues: Carotid atherosclerosis. No acute findings. Visualized upper chest: No acute findings. IMPRESSION: 1. Multifocal subarachnoid hemorrhage. 2. Right zygomaticomaxillary complex fracture with a complex fracture of the right maxillary sinus. 3. Right orbital floor mildly displaced fracture and probable nondisplaced fracture of the medial wal l with trace hemorrhage in the extraconal fat. There is mild proptosis of the right orbit and questio nable traction on the right optic nerve. ENT/ophthalmology consultation is recommended. 4. Age-indeterminate nondisplaced fracture through the lateral margin of the C1 right lateral mass. N o other cervical spine fracture is identified. 5. Cervical spine degenerative change as described above.Results were discussed with Dr. Kev Colbert at 10/26/2018 6:12 PM. Report Dictated By: Obinna Mccain MD at 10/26/2018 5:58 PM Report E-Signed By: Obinna Mccain MD at 10/26/2018 6:16 PM WSN:[id number]
--- NOTE | 2018-10-26 18:31 | RADIOLOGY IMAGING REPORT ---
FACILITY: [facility] PATIENT NAME: Stephanie Tay : 1945 MR: [id number] V: [id number] EXAM DATE: ORDERING PHYSICIAN: MICHEAL TERRELL TECHNOLOGIST: Location: Patient: Stephanie Tay : 1945 Visit/Account:[id number] Date of Sevice: 10/26/2018 Examination: CT chest, abdomen, and pelvis without contrast Comparison: None. History: fall Procedure: Multiplanar noncontrast imaging of the chest, abdomen, and pelvis. One of the following dose optimization techniques was utilized in the performance of this exam: Autom ated exposure control; adjustment of the mA and/or kV according to the patient's size; or use of an i terative reconstruction technique. Specific details can be referenced in the facility's radiology C T exam operational policy. Findings: Evaluation of the solid and viscus parenchymal organs and vascular structures is limited wi thout the benefit of IV contrast. CT chest: Mediastinum: Cardiac chamber size is normal. No pericardial effusion. Mild coronary calcifications. N o thoracic aortic aneurysm. No mediastinal hemorrhage. Lymph nodes: None. Lungs and pleura: Right lower lobe 5 mm nodule. No consolidation. No pneumothorax, edema, or effusion . Airways: Negative. Diaphragm: Intact. CT abdomen and pelvis: Liver: Negative Gallbladder and biliary system: Negative Spleen: Negative Pancreas: Negative Adrenal glands: Negative Kidneys and urinary bladder: Negative Vessels: Aortoiliac mild atherosclerosis. No abdominal aortic aneurysm. No retroperitoneal hemorrhage . Bowel and mesentery: Stomach, small bowel, and appendix are unremarkable. Small amount of stool in th e colon. No bowel or mesenteric inflammation. Pelvic organs: Negative. Free air/free fluid: None Lymph nodes: Negative Abdominal wall and subcutaneous tissues: Small fat-containing umbilical hernia. No acute findings. Osseous structures: Thoracolumbar spine: No vertebral body height loss or acute malalignment. Moderately advanced degener ative disc disease at L3-L4 and to lesser extent at L1-L2, L2-L3, L4-L5, and L5-S1. A disc bulge at L 3-L4 results in severe canal and lateral recess narrowing. No fracture. Pelvic ring: Pelvic ring is intact. Pubic symphysis osteoarthritis. Proximal femur are intact. Ribs: Right third rib nondisplaced segmental fracture. Right fourth rib nondisplaced lateral fracture . Right fifth rib nondisplaced segmental fracture. Right seventh rib nondisplaced lateral fracture. Visualized sternum, scapula, and clavicles: No fracture. Glenohumeral osteoarthritis. IMPRESSION: 1. Right third, fourth, fifth, and seventh rib fractures. 2. No other noncontrast CT findings of trauma or acute disease in the chest, abdomen, or pelvis. 3. Right lower lobe 5 mm nodule. Follow-up as detailed below. 4. Additional chronic/incidental findings as described above. [employer] FOLLOW-UP GUIDELINES FOR NEWLY DETECTED INCIDENTAL NODULES IN PERSONS 35 YEARS OF AGE OR OLDER. *These recommendations do NOT apply to lung cancer screening, patients with immunosuppression or amilcar ents with a known primary malignancy. SOLITARY SOLID NODULE If nodule size is < 6 mm: * Low risk patient - No routine follow-up. * High risk patient - Optional CT at 12 months. LOW RISK PATIENT: Minimal or absent history of tobacco use and of other known risk factors. HIGH RISK PATIENT: Tobacco use, family history of lung cancer, upper pulmonary lobe location of nodul e, presence of emphysema, pulmonary fibrosis, older age. Thony H, Vamshi DP, Goo JM, et al. Guidelines for Management of Incidental Pulmonary Nodules Dete cted on CT Images: From the Fleischner Society 2017. Radiology. [facility] Report Dictated By: Obinna Mccain MD at 10/26/2018 6:16 PM Report E-Signed By: Obinna Mccain MD at 10/26/2018 6:27 PM WSN:[id number]
[2018-10-26 19:30] VITALS: BP 130/52
== END 2018-10-26 20:02 | disposition short-term general hospital (02) ==
LOC: ER 16:48
DX: S12.001A Unspecified nondisplaced fracture of first cervical vertebra, initial encounter for closed fracture (principal); S22.41XA Multiple fractures of ribs, right side, initial encounter for closed fracture; S01.111A Laceration without foreign body of right eyelid and periocular area, initial encounter; W10.9XXA Fall (on) (from) unspecified stairs and steps, initial encounter
CPT/HCPCS: 12013; 70450; 71250; 72125; 74176; 80305; 81001; 83605; 83690; 85025; 85610; 85730; 90471; 90715; 93005; 96374; 96375; 99291; 99292; C1758; G0480; J2405; J3010; 80320; 82040; 82247; 82310; 82374; 82435; 82565; 82947; 84075; 84132; 84155; 84295; 84450; 84460; 84520

== ENCOUNTER → 2018-10-26 | Outpatient (CLI) | payer MEDICARE, OTHER | LOC: AMB 19:42 | PROVIDERS: ATTEND Nurse Practitioner | DX: S12.000A Unspecified displaced fracture of first cervical vertebra, initial encounter for closed fracture (principal); S06.6X0A Traumatic subarachnoid hemorrhage without loss of consciousness, initial encounter; S22.49XA Multiple fractures of ribs, unspecified side, initial encounter for closed fracture; S01.111A Laceration without foreign body of right eyelid and periocular area, initial encounter; R09.02 Hypoxemia; I10 Essential (primary) hypertension; E11.9 Type 2 diabetes mellitus without complications; Z79.4 Long term (current) use of insulin; W10.9XXA Fall (on) (from) unspecified stairs and steps, initial encounter | CPT/HCPCS: A0425; A0426; A0888 ==

== ENCOUNTER → 2018-10-26 | Outpatient (CLI) | payer MEDICARE, OTHER | LOC: AMB 16:12 | PROVIDERS: ATTEND Nurse Practitioner | DX: R41.82 Altered mental status, unspecified (principal); S09.90XA Unspecified injury of head, initial encounter; R51 Headache; R04.0 Epistaxis; S00.11XA Contusion of right eyelid and periocular area, initial encounter; R09.02 Hypoxemia; W10.9XXA Fall (on) (from) unspecified stairs and steps, initial encounter; Y92.019 Unspecified place in single-family (private) house as the place of occurrence of the external cause | CPT/HCPCS: A0425; A0427 ==

== ENCOUNTER → 2018-12-23 | Outpatient (CLI) | payer MEDICARE, OTHER | LOC: LAB 14:42 | PROVIDERS: ATTEND Nurse Practitioner Family | DX: E11.65 Type 2 diabetes mellitus with hyperglycemia (principal); I10 Essential (primary) hypertension | CPT/HCPCS: 36415; 82040; 82247; 82310; 82374; 82435; 82565; 82947; 83036; 84075; 84132; 84155; 84295; 84443; 84450; 84460; 84520 ==

== ENCOUNTER → 2019-04-06 | Outpatient (CLI) | payer MEDICARE, OTHER ==
[~2019-04-06] MED LIST changes: -OMEP-125 PO; +OMEP-126 PO
== END ==
LOC: LAB 11:59
PROVIDERS: ATTEND Nurse Practitioner Family
DX: E11.65 Type 2 diabetes mellitus with hyperglycemia (principal); E78.2 Mixed hyperlipidemia; I10 Essential (primary) hypertension
CPT/HCPCS: 36415; 82040; 82247; 82310; 82374; 82435; 82565; 82947; 83036; 84075; 84132; 84155; 84295; 84450; 84460; 84520